=== PATIENT | male | born 1980 | race Caucasian/White ===

== ENCOUNTER → 2016-10-14 | Outpatient (CLI) | payer BC | LOC: CIMAGING 12:49 | PROVIDERS: ATTEND Family Medicine | DX: J45.909 Unspecified asthma, uncomplicated (principal) | CPT/HCPCS: 71020-PO ==

== ENCOUNTER 2016-10-26 05:55 | Day surgery (SDC) | payer BC, OTHER ==
[2016-10-26] MEDS ORDERED: LIDOCAINE 1% 2 ML INJ ONE (06:32)
[2016-10-26] MEDS ORDERED: ROPIVACAINE HCL 20 MG/10 ML INJ EP ONE ×2 (07:09→09:16)
[2016-10-26] MEDS ORDERED: CEFAZOLIN 1 GM/DEXTROSE/50 ML BAG IV ONE (07:12)
[2016-10-26] MEDS ORDERED: MIDAZOLAM 2 MG/2 ML VIAL ONE (07:17)
[2016-10-26] MEDS ORDERED: PROPOFOL/EMULSION 500 MG/50 ML BOTTLE IV ONE ×2 (07:18→08:13)
[2016-10-26] MEDS ORDERED: LIDOCAINE 2% 100 MG/5 ML SYR ONE (07:18)
[2016-10-26] MEDS ORDERED: DEXAMETHASONE 4 MG/ML VIAL ONE ×2 (07:18)
[2016-10-26] MEDS ORDERED: ROCURONIUM 100 MG/10 ML VIAL ONE (07:18)
[2016-10-26] MEDS ORDERED: SUGAMMADEX SODIUM 200 MG/2 ML VIAL IVP ONE (08:55)
[2016-10-26] MEDS ORDERED: fentaNYL 100 MCG/2 ML INJ ONE (09:53)
[2016-10-26] MEDS ORDERED: LR 1,000 ML IV ONE (11:17)
[2016-10-26] MEDS ORDERED: LIDOCAINE 1% 5 ML SDV ID PRN (11:17)
--- NOTE | 2016-10-26 11:24 | GOP ---
[f rep st] OPERATIVE REPORT DATE OF OPERATION: 10/26/2016 SURGEON: Chelo Hook MD [employer] ARCHITECT: Mandie Hernandez PAC, medically required for positioning of the leg during arthroscopic h ip work with careful retraction of vital neurovascular structures. PREOPERATIVE DIAGNOSIS: 1. Left hip impingement. 2. Left hip labral tear. 3. Left hip synovitis. POSTOPERATIVE DIAGNOSIS: 1. Left hip impingement. 2. Left hip labral tear. 3. Left hip synovitis. PROCEDURE PERFORMED: 1. Arthroscopic left hip Cam osteoplasty. 2. Arthroscopic left hip labral debridement. 3. Arthroscopic left hip capsulotomy and capsulectomy. 4. Arthroscopic left hip extensive synovectomy. FINDINGS: ESTIMATED BLOOD LOSS: Minimal. 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 Left hip pain. Successful left h ip injection. Clinical, radiographic, and MRI confirmed cam-type impingement with a suggestion of a labral tear. Lateral cam. The patient failed nonsurgical management and now presents for surgical management. DESCRIPTION OF PROCEDURE: The patient identified in the preoperative holding area. Consent, lateral ity, and preoperative antibiotics were confirmed delivered. All questions were answered. The left hi p was identified. His mother was at the bedside. The patient brought into the operating room. General anesthesia. Traction table, Marie and Nephew aleshia lster used. The new Marie and Nephew table attachment was used with well-padded foot supports. The w ell leg was placed in 30 degrees abduction with well-padded foot, slight traction. The perineum was up against the 12-inch post, and then the surgical hip, the left hip, was placed in about 15 degrees of hip flexion, neutral rotation, and traction. We were able to get about a centimeter of diastasis on the hip. The left hip was prepped and draped in the usual sterile fashion. Surgical time-out was performed. Ioban draping. We marked off the ASIS, top of the greater trochanter. We used an anterio r peritrochanteric portal, 6-1/2-inch spinal needle, Nitinol wire to confirm placement under fluoros copy. An 11 blade incision, successive dilation, and placed Henrietta soft-sided cannulas in there. We confirmed the anterior triangle under direct vision, placed a 6-1/2-inch spinal needle at the mid a nterolateral portal. We connected the 2 portals with a curved Samuri blade. Diagnostic arthroscopy included small labral scuffing. A small wave sign. There was no instability. He had extensive synovitis throughout of the anterior and superior capsule. We did a capsular debrid ement, labral debridement. He had some scuffing over the lateral neck of the femur. We switched port al sites. There was no evidence of labral penetration. We did approximately a 4 x 3 cm swath of femo ral neck osteoplasty, confirmed this at 80 degrees of hip flexion with internal and external rotatio n. No labral impingement. Debris was removed. Extensive synovectomy was performed. We placed a 6-1/2 -inch spinal needle in the hip again. 20 cc of 0.2% ropivacaine were injected. We withdrew the needl e and did 10 cc at each portal site. Portal sites were closed with 3-0 nylon, Xeroform, 4 x 4's, ABD , and Medipore tape. COMPLICATIONS: None. TOTAL SURGICAL AND TOURNIQUET TIME: 90 minutes. DISPOSITION: Extubated, awake, to the PACU in stable condition. /[id number]/MODL
== END 2016-10-26 11:58 | disposition home or self-care (01) ==
LOC: FSGY 05:55
PROVIDERS: ATTEND Orthopaedic Surgery
PROC: 0SQB4ZZ Repair Left Hip Joint, Percutaneous Endoscopic Approach (ICD-10-PCS; principal; 2016-10-26 07:15)
DX: M25.852 Other specified joint disorders, left hip (principal); J45.909 Unspecified asthma, uncomplicated; K21.9 Gastro-esophageal reflux disease without esophagitis
CPT/HCPCS: 29862; 76001; C1769; J0690; J1100; J2001; J2250; J2704; J2795; J3010

== ENCOUNTER → 2017-06-14 | Outpatient (CLI) | payer BC | LOC: CIMAGING 10:59 | PROVIDERS: ATTEND Family Medicine | DX: M25.512 Pain in left shoulder (principal) | CPT/HCPCS: 73030-PO; 73050-PO ==